=== PATIENT | male | born 1950 | race Caucasian/White ===

== ENCOUNTER → 2017-11-26 | Outpatient (CLI) | payer MEDICARE ==
--- NOTE | 2017-11-26 14:24 | NM ---
EXAMINATION TYPE: NM bone 3 phase DATE OF EXAM: 11/26/2017 COMPARISON: NONE HISTORY: Osteomyelitis, left foot open wound Triple phase bone scintigraphy was performed following the injection of 25.7 mCi Tc 99m MDP. Immedia te images and 4 hours post injection images acquired. FINDINGS: Increased blood flow and blood pool activity noted to the region of the distal first metatarsal, ther e is increased radiopharmaceutical uptake noted in the focal distribution at this level on delayed im ages. IMPRESSION: Findings compatible with osteomyelitis distal aspect first metatarsal left foot
== END | disposition home or self-care (01) ==
LOC: RADNMMAIN 08:16
PROVIDERS: ATTEND Family Medicine
DX: M86.8X7 Other osteomyelitis, ankle and foot (principal)
CPT/HCPCS: 78315; A9503

== ENCOUNTER 2023-07-20 18:08 | Emergency (ER) | payer MEDICARE ==
[2023-07-20 18:49] VITALS: TEMP 98.7
--- NOTE | 2023-07-20 18:50 | ED ---
Lower Extremity Injury HPI - General Chief Complaint: Extremity Injury, Lower Stated Complaint: R Knee Pain Time Seen by Provider: 07/20/23 18:48 Source: patient, family, RN notes reviewed Mode of arrival: ambulatory Limitations: physical limitation - History of Present Illness Initial Comments: 72-year-old male presented to the ER with chief complaint of right knee pain. Patient reports he was stepping off of his porch and his right knee gave out. He states he fell but denies head injury, loss of consciousness or blood thinner use. He reports he has had multiple surgeries on his knee including multiple bone spur removal. He rates his pain an 8 out of 10 and has not taken anything prior to arrival. Denies any paresthesias or weakness. He is currently wearing a brace with minor pain relief. Reports most of his pain is on the medial aspect of his knee and has extreme pain with range of motion. Denies any other complaints. - Related Data Home Medications Medication Instructions Recorded Confirmed Aspirin 81 mg PO DAILY 03/09/17 03/09/17 Previous Rx's Medication Instructions Recorded Fenofibrate [Lofibra] 160 mg PO DAILY 30 Days #30 tab 03/12/17 Nitroglycerin Sl Tabs [Nitrostat] 0.4 mg SUBLINGUAL Q5M PRN #30 tab 03/12/17 Allergies Allergy/AdvReac Type Severity Reaction Status Date / Time banana Allergy Anaphylaxis Verified 07/20/23 18:39 Iodinated Contrast Media Allergy Anaphylaxis Verified 07/20/23 18:39 [Iodinated Contrast- Oral and IV Dye] Penicillins Allergy Anaphylaxis Verified 07/20/23 18:39 shellfish derived [Shellfish] Allergy Anaphylaxis Verified 07/20/23 18:39 Review of Systems ROS Statement: Those systems with pertinent positive or pertinent negative responses have been documented in the HPI. ROS Other: All systems not noted in ROS Statement are negative. Past Medical History Past Medical History: Asthma, Chest Pain / Angina, GERD/Reflux, Hyperlipidemia, Hypertension, Osteoarthritis (OA) Additional Past Medical History / Comment(s): used to be on medications for bp and choleserol but dropped 25# and quit drinking and no longer needed medic atiosn.kidney cysts-drained once it reoccured-had sx to remove.asthma a a child. lt leg caricose veins, chronic back pain.past dislocated shoulders. History of Any Multi-Drug Resistant Organisms: None Reported Past Surgical History: Adenoidectomy, Hernia Repair, Orthopedic Surgery, Tonsillectomy Additional Past Surgical History / Comment(s): egd/colonsocpies x3 (the first colonossocpies he had polyps -all were neg and 3rd colonoscopy was clear).mela inguinal hernia repair. rt knee sx-cartilage removed. had a 2nd rt knee sx bone chips removed. mela bunionectomies, rt elbow tendon repair, rt kidney cyst removed. Past Anesthesia/Blood Transfusion Reactions: Motion Sickness Additional Past Anesthesia/Blood Transfusion Reaction / Comment(s): had motion sickness once in his life. Past Psychological History: No Psychological Hx Reported Smoking Status: Current every day smoker, Never smoker Past Alcohol Use History: Occasional Past Drug Use History: None Reported - Past Family History Mother Family Medical History: Cancer Additional Family Medical History / Comment(s): breast cancer Father Family Medical History: Cancer Additional Family Medical History / Comment(s): adrenal glands/lung General Exam Limitations: physical limitation General appearance: alert, in no apparent distress Head exam: Present: atraumatic, normocephalic, normal inspection Eye exam: Present: normal appearance, PERRL, EOMI. Absent: scleral icterus, conjunctival injection, periorbital swelling Respiratory exam: Present: normal lung sounds bilaterally. Absent: respiratory distress, wheezes, rales, rhonchi, stridor Cardiovascular Exam: Present: regular rate, normal rhythm, normal heart sounds. Absent: systolic murmur, diastolic murmur, rubs, gallop, clicks Extremities exam: Present: tenderness (Tenderness and edema to medial aspect of right knee. Range of motion elicits pain. 2+ dorsalis pedis pulse. Sensation intact.) Neurological exam: Present: alert, oriented X3, CN II-XII intact Skin exam: Present: warm, dry, intact, normal color. Absent: rash Course Vital Signs 07/20/23 07/20/23 18:35 21:10 Temperature 98.7 F Pulse Rate 74 70 Respiratory 20 16 Rate Blood Pressure 176/90 171/84 O2 Sat by Pulse 96 100 Oximetry Medical Decision Making - Medical Decision Making Was pt. sent in by a medical professional or institution (, PA, PAEDIATRICIAN, urgent care, hospital, or [facility]...) When possible be specific @ -No Did you speak to anyone other than the patient for history (EMS, parent, family, police, friend...)? What history was obtained from this source @ -No Did you review nursing and triage notes (agree or disagree)? Why? @ -I reviewed and agree with nursing and triage notes Were old charts reviewed (outside hosp., previous admission, EMS record, old EKG, old radiological studies, urgent care reports/EKG's, [facility] records)? Report findings @ -No old charts were reviewed Differential Diagnosis (chest pain, altered mental status, abdominal pain women, abdominal pain men, vaginal bleeding, weakness, fever, dyspnea, syncope, headache, dizziness, GI bleed, back pain, seizure, CVA, palpatations, mental health, musculoskeletal)? @ -Differential Musculoskeletal: Muscular strain, contusion, ligament sprain, fracture, arthritis, septic arthritis, bursitis, cellulitis, muscle spasm, nerve compression, DVT, arterial occlusion, herpes zoster, electrolyte abnormality, tumor.... This is not meant to be in all inclusive list EKG interpreted by me (3pts min.). @ -None X-rays interpreted by me (1pt min.). @ -Right knee x-ray interpreted by me negative for acute process. CT interpreted by me (1pt min.). @ -None done U/S interpreted by me (1pt. min.). @ -None done What testing was considered but not performed or refused? (CT, X-rays, U/S, labs)? Why? @ -None What meds were considered but not given or refused? Why? @ -None Did you discuss the management of the patient with other professionals (professionals i.e. , PA, PAEDIATRICIAN, lab, RT, psych nurse, manager social services, provider network analyst, teacher, transport corps officer, field nurse case manager)? Give summary @ -No Was smoking cessation discussed for >3mins.? @ -No Was critical care preformed (if so, how long)? @ -No Were there social determinants of health that impacted care today? How? (Homelessness, low income, unemployed, alcoholism, drug addiction, transportation, low edu. Level, literacy, decrease access to med. care, prison, rehab)? @ -No Was there de-escalation of care discussed even if they declined (Discuss DNR or withdrawal of care, Hospice)? DNR status @ -No What co-morbidities impacted this encounter? (DM, HTN, Smoking, COPD, CAD, Cancer, CVA, ARF, Chemo, Hep., AIDS, mental health diagnosis, sleep apnea, morbid obesity)? @ -None Was patient admitted / discharged? Hospital course, mention meds given and route, prescriptions, significant lab abnormalities, going to OR and other pertinent info. @ -Discharged. 72-year-old male presenting to the ER with chief complaint of right knee injury. History and physical exam completed. Vitals stable. Patient no signs of acute distress and nontoxic-appearing. Right lower extremity neurovascular intact. Patient received IM Toradol for symptom control in the ER. X-rays obtained negative for acute process. Results discussed with patient, all questions answered. Advise follow-up with orthopedics, referral given. Return parameters discussed. Patient discharged in stable condition with follow-up to orthopedics. Patient verbally expressed understanding and agreement with care plan. Case discussed with ED attending, Dr. Hidalgo. Undiagnosed new problem with uncertain prognosis? @ -No Drug Therapy requiring intensive monitoring for toxicity (Heparin, Nitro, Insulin, Cardizem)? @ -No Were any procedures done? @ -No Diagnosis/symptom? @ -Knee injury Acute, or Chronic, or Acute on Chronic? @ -Acute Uncomplicated (without systemic symptoms) or Complicated (systemic symptoms)? @ -Uncomplicated Side effects of treatment? @ -No Exacerbation, Progression, or Severe Exacerbation? @ -No Poses a threat to life or bodily function? How? (Chest pain, [place], [place], pneumonia, PE, COPD, DKA, ARF, appy, cholecystitis, CVA, Diverticulitis, Homicidal, Suicidal, threat to staff... and all critical care pts) @ -No - Radiology Data Radiology results: report reviewed, image reviewed Disposition Clinical Impression: Knee injury Disposition: HOME SELF-CARE Condition: Stable Instructions (If sedation given, give patient instructions): Knee Pain (ED) Additional Instructions: Please follow-up with orthopedics, referral given. You may take [id number] Tylenol and Motrin for pain control. Return to the ER for any new or worsening concerns. Is patient prescribed a controlled substance at d/c from ED?: No Referrals: Kalie Tanner MD [Primary Care Provider] - 1-2 days Andrew Larose MD [Medical Doctor] - 1-2 days Time of Disposition: 20:58
[2023-07-20] MEDS: KETOROLAC 15 MG/ML 1 ML VIAL IM STA (18:52)
--- NOTE | 2023-07-20 20:41 | XR ---
EXAMINATION TYPE: XR knee complete RT DATE OF EXAM: 07/20/2023 7:13 PM CLINICAL INDICATION:Male, 72 years old with history of pain; [facility] COMPARISON: None. TECHNIQUE: XR knee complete RT; examined in Frontal, lateral and oblique projections. FINDINGS: Osseous mineralization appears appropriate. No evidence of destructive lesion or aggressive periostit is. No acute fracture or dislocation. Mild tricompartmental osteoarthropathy. Mild deformity proximal fibula suggesting remote healed fracture. Unremarkable soft tissues without significant joint effusi on or radiopaque foreign body seen. A few scattered vascular calcifications. IMPRESSION: No acute fracture or dislocation.
[2023-07-20 21:55] VITALS: BP 171/84; PULSE 70; RESP 16
== END 2023-07-20 21:25 | disposition home or self-care (01) ==
LOC: EC 18:08
DX: S89.91XA Unspecified injury of right lower leg, initial encounter (principal); F17.200 Nicotine dependence, unspecified, uncomplicated; Z91.018 Allergy to other foods; Z91.041 Radiographic dye allergy status; Z88.0 Allergy status to penicillin; Z91.013 Allergy to seafood; X58.XXXA Exposure to other specified factors, initial encounter
CPT/HCPCS: 73562; 99283; 96372; J1885